=== PATIENT | female | born 1955 | race Caucasian/White ===

== ENCOUNTER 2022-10-25 08:54 | Emergency (ER) | payer MEDICARE, OTHER, SELFPAY ==
--- NOTE | ~2022-10-25 | XR_ITS ---
EXAMINATION: XR hand LT min 3V DATE: 10/25/2022 09:23 INDICATION: Left hand pain. Fall. TECHNIQUE: 3 views of left hand were obtained. COMPARISON: None. FINDINGS: Bone alignment is normal. There is a transverse fracture of neck of fourth metacarpal. The distal fracture fragment demonstrates 2 mm ulnar displacement. 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 There is mild osteoarthritis of s ome of the interphalangeal joints. IMPRESSION: 1. Transverse fracture of neck of fourth metacarpal. Reviewed, dictated and finalized at location A.
[2022-10-25 08:55] VITALS: BP 158/84; PULSE 72; RESP 18; TEMP 36.5; O2SAT 98
--- NOTE | 2022-10-25 09:28 | ED.GENADULT ---
HPI - General Adult General Chief complaint: Fall Stated complaint: fall/ hand injury Time Seen by Provider: 10/25/22 09:00 Source: patient Mode of arrival: ambulatory Limitations: no limitations History of Present Illness HPI narrative: This is a 67-year-old female who presents to the ED with chief complaint of of a fall and left hand injury occurring just prior to arrival. Patient states that she was walking on an uneven sidewalk and had an accidental fall due to tripping. She fell forwards onto the left hand but was able to control most of the fall. She has subsequent pain in the ulnar side of the left hand and wrist. Denies numbness or weakness. Denies further site of pain or injury. Related Data Allergies Allergy/AdvReac Type Severity Reaction Status Date / Time No Known Allergies Allergy Verified 10/25/22 08:59 Review of Systems Review of Systems: All systems as dictated in HPI Exam Narrative: GENERAL: Well-appearing, well-nourished, and in no acute distress. HEAD: Normocephalic, atraumatic. EYES: PERRLA and EOMI. ENT: Nares clear, no rhinorrhea or epistaxis. Mucous membranes moist. Oropharynx without tonsillar hypertrophy exudate or other lesions. NECK: Supple. No adenopathy or masses. CHEST: No respiratory distress. Clear to auscultation. No wheezes rales or rhonchi HEART: Regular rate and rhythm. No murmur heard. Normal peripheral pulses. ABDOMEN: Soft, nontender, nondistended, normal active bowel sounds. MSK: LUE: No gross deformity throughout the hand. No bruising. There is moderate tenderness in the ulnar side of the metacarpals and left wrist. She is able to make a fist and extend the fingers. Neurovascular intact distally. RUE: Benign. SKIN: Warm, dry, no rash. NEURO: Alert and oriented x3. No focal deficits. PSYCH: Normal mood and affect. Course Vital Signs Vital signs: Vital Signs Temperature 97.7 F 10/25/22 08:55 Pulse Rate 72 10/25/22 08:55 Respiratory Rate 18 10/25/22 08:55 Blood Pressure 158/84 H 10/25/22 08:55 Pulse Oximetry 98 10/25/22 08:55 Oxygen Delivery Room Air 10/25/22 08:55 Temperature 97.7 F 10/25/22 08:55 Pulse Rate 72 08/19/23 08:55 Respiratory Rate 18 10/25/22 08:55 Blood Pressure 158/84 H 10/25/22 08:55 Pulse Oximetry 98 10/25/22 08:55 Oxygen Delivery Room Air 10/25/22 08:55 Procedures Orthopedic Splinting/Casting Injury #1: Splinting/Casting Date: 10/25/22 Splinting/Casting Time: 17:06 Side: left Upper Extremity Injury Location: wrist Upper Extremity Immobilizer: ulnar gutter Splint: prefabricated OCL: ulnar gutter Pre-Procedure Neuro Vascular Exam: normal Post-Procedure Neuro Vascular Exam: normal Medical Decision Making MDM Narrative Medical decision making narrative: This is a 67-year-old female who presents to the ED with chief complaint of a fall and left hand injury. Vitals are normal. Exam shows tenderness throughout the ulnar side of the hand. Her x-rays today show a transverse fracture of the distal fourth metacarpal. She was given pain medication here. Ulnar gutter splint applied. Referral for hand doctor given, however she is coming from out of town from [place]. She feels comfortable following up with her PCP and will likely get a hand doctor referral from them. She would like to avoid opioids and just take Tylenol and ibuprofen for pain control. Pt will be discharged in stable condition. Return precautions given and supportive measures discussed. Pt is understanding and agreeable with plan for discharge and follow-up with PCP. Vital Signs Vital Signs: Vital Signs Temperature 97.7 F 10/25/22 08:55 Pulse Rate 72 10/25/22 08:55 Respiratory Rate 18 10/25/22 08:55 Blood Pressure 158/84 H 10/25/22 08:55 Pulse Oximetry 98 10/25/22 08:55 Oxygen Delivery Room Air 10/25/22 08:55 Temperature 97.7 F 10/25/22
[2022-10-25] MEDS: HYDROcodone/acetaminophen (*CRX) 5-325 MG TABLET 1 TAB PO (09:35)
== END 2022-10-25 11:22 | disposition home or self-care (01) ==
PROVIDERS: Emergency Provider Physician Assistant
DX: S62.335A Displaced fracture of neck of fourth metacarpal bone, left hand, initial encounter for closed fracture (principal); W01.0XXA Fall on same level from slipping, tripping and stumbling without subsequent striking against object, initial encounter
CPT/HCPCS: 29125; 73130; 99284; A9270